=== PATIENT | male | born 1970 | race Caucasian/White ===

== ENCOUNTER 2022-11-07 12:39 | Outpatient (REF) | payer OTHER, SELFPAY ==
[2022-11-07 20:40] LABS: Abs Immature Grans 0.03 10^3/uL (0.0-0.06); Absolute Basophil Count 0.08 10^3/uL (0.0-0.2); Absolute Eosinophil Count 0.22 10^3/uL (0.0-0.7); Absolute Monocyte Count 0.67 10^3/uL (0.1-0.8); Absolute Neutrophil Count 4.55 10^3/uL (1.2-6.7); Eosinophils % 2.8; HCT 45.9 % (40.0-50.0); HGB 15.8 g/dL (13.5-17.5); Immature Grans % 0.4; Lymphocytes % 30.2; MCH 28.7 pg (27.0-33.0); MCHC 34.4 % (32.0-36.0); MCV 83 fL (80-95); Monocytes % 8.4; Neutrophils % 57.2; Platelet Count 254 10^3/uL (130-400); RBC 5.51 10^6/uL (4.36-5.78); RDW 13.5 % (11.8-14.1); RDW-SD 41.3 fL; WBC 7.95 10^3/uL (4.4-10.8)
[2022-11-07 20:50] LABS: Anion Gap 8.5 mmol/L (3-11); BUN 11 mg/dL (7-18); CO2 26.5 mmol/L (21.0-32.0); CREATININE 0.8 mg/dL (0.70-1.30); Calcium 9.7 mg/dL (8.5-10.1); Chloride 102 mmol/L (98-107); Estimated GFR 107.15 (mL/min/1.73m2); Glucose 100 mg/dL (74-106); Potassium 4.2 mmol/L (3.5-5.1); Sodium 137 mmol/L (136-145)
== END 2022-11-07 12:40 | disposition home or self-care (01) ==
LOC: LBN 12:39
PROVIDERS: Visit Provider Nurse Practitioner Family
DX: B35.3 Tinea pedis; L03.031 Cellulitis of right toe; B35.8 Other dermatophytoses
CPT/HCPCS: 80048; 85025

== ENCOUNTER 2022-12-05 15:56 | Outpatient (REF) | payer OTHER, SELFPAY | END 2022-12-05 15:57 | disposition home or self-care (01) | LOC: LBN 15:56 | PROVIDERS: PCP Nurse Practitioner Family; Visit Provider Podiatrist | DX: R21 Rash and other nonspecific skin eruption (principal) | CPT/HCPCS: 87077; 87070; 87075; 87186; 87205 ==

== ENCOUNTER 2022-12-15 07:29 | Day surgery (SDC) | payer OTHER, SELFPAY ==
--- NOTE | 2022-12-14 19:33 | W.ANESPRE ---
General Info Date of Service Date Performed: 12/15/22 Height: 5 ft 5 in Weight: 80.739 kg Body Mass Index (BMI): 29.6 Surgical Procedure: Operation Date: 12/15/22 10:25 Proposed Procedure Side Surgeon p Shoulder Possible Rotator Cuff Arthroscopic w/Extensive Debridement, Biceps Tenodesis, Subacromial Decompression, Distal Clavicle Excision Right Milind Martínez MD Meds Allergies and Home Medications Allergies Allergy/AdvReac Type Severity Reaction Status Date / Time No Known Allergies Allergy Unverified 12/15/22 08:09 Home Medication Medication Instructions Recorded econazole 1 % topical cream 1 applic topical BID #30 grams 11/07/22 gentamicin 0.1 % topical cream 1 applic topical TID #30 grams 11/07/22 sulfamethoxazole 800 1 tab PO BID #14 tabs 12/11/22 mg-trimethoprim 160 mg tablet (Bactrim DS) aspirin 81 mg tablet,delayed 81 mg PO DAILY prevent blood clot 12/15/22 release 7 days #7 tabs naproxen 250 mg tablet 250 - 500 mg (1 - 2 x 250 mg) PO 12/15/22 BID PRN #40 tabs oxycodone 5 mg tablet 5 - 10 mg (1 - 2 x 5 mg) PO Q4H 12/15/22 PRN moderate to severe pain #18 tabs Current Visit Medications: Current Medications Generic Name Dose Route Start Last Admin Trade Name Freq PRN Reason Stop Dose Admin Ringer's Solution 1,000 mls @ 30 mls/hr 12/15/22 06:00 IV 01/13/23 23:59 INFUSION [place] Cefazolin Sodium/Dextrose 2 gm in 50 mls @ 100 mls/hr 12/15/22 06:00 Ancef Duplex IVPB 12/15/22 16:00 PREOP [place] IV Miscellaneous Supplies 1 each 12/15/22 06:00 Iv Access IV 01/13/23 23:59 DIRECTED [place] Sodium Chloride 0 ml 12/15/22 06:00 Normal Saline Flush 10 Ml Syr IV 01/13/23 23:59 PRN PRN Sodium Chloride 0 ml 12/15/22 06:00 Normal Saline 10 Ml Vial IJ 01/13/23 23:59 DIRECTED PRN Sterile Water 0 ml 12/15/22 06:00 Water,Injection,Sterile 10 Ml Vial IJ 01/13/23 23:59 DIRECTED PRN PFSH Active Problems Active Problems: Problem Status Onset Code Onychomycosis B35.1 Dermatitis L30.9 Tinea pedis B35.3 SLAP lesion of right shoulder S43.431A Arthritis of right acromioclavicular joint M19.011 Tendinopathy of right biceps tendon M67.921 Medical History Medical History (Updated 12/15/22 @ 08:11 by Terri Boo) Hx of dislocation of elbow pt. reports being put out for it Surgical History Surgical History (Updated 12/15/22 @ 08:11 by Terri Boo) Hx of colonoscopy Tobacco Smoking/Tobacco Use Status: Never Substance Use Substance use: Daily Substance use type: marijuana Vital Signs and Lab Results Vital Signs Most Recent Vital Signs in EMR: Temp Pulse Resp BP Pulse Ox 36.3 C L 61 16 103/65 97 12/15/22 08:16 12/15/22 08:16 12/15/22 08:16 12/15/22 08:16 12/15/22 08:16 Lab Results Blood Type / Crossmatch: No Data to Display Complete Blood Count: No Data to Display Complete Metabolic Panel: No Data to Display Liver Function Panel: No Data to Display Coagulation Panel: No Data to Display Cardiac Panel: No Data to Display Arterial Blood Gas: No Data to Display Venous Blood Gas: No Data to Display Pancreas Panel: No Data to Display Thyroid Panel: No Data to Display Infectious Disease: No Data to Display Blood Cultures: No Data to Display Toxicology Panel: No Data to Display Anesthesia Assessment and Plan Anesthesia History Personal History: No History of Anesthesia Complications Family History: No Family History of Anesthesia Complications Exercise Tolerance Exercise Tolerance: Metabolic Equivalents>4 Pertinent Negatives Pertinent Negatives: No Major Cardiovascular Symptoms or Complaints, No Major Pulmonary Symptoms or Complaints and No History of CVA/TIA Cardiac & Pulmonary Exam Cardiac Exam: Normal S1/S2 Heart Sounds Pulmonary Exam: Clear Bilateral Breath Sounds Implantable Cardiac Device Does patient have a Pacemaker or an ICD?: No Airway Exam Known Difficult Airway: No Mallampati Class: 2 Mouth Opening: Normal (> 3cm) Thyromental Distance: Less than 3 cm Neck Range of Motion: Full ROM Neck Circumference: Normal Teeth Condition: Edentulous ASA Classification ASA Score: ASA 2 Emergency Case?: No NPO Status NPO Status: NPO Clears >2 hours, Solids >8 hours Anesthesia Plan Resuscitation Status: Full Code Anesthesia Technique: General Anesthesia Airway Planned: Endotracheal Tube Pain Management: Surgeon and patient request nerve block Monitors Used: Standard Monitors Preoperative Comments:: 52 yo male for shoulder scope. Sig PMHx: daily cannabis. Denies major. Does have a ? toe/foot infection that is chronic for which he is on Bactrim - Korsh aware
[2022-12-15] VITALS (9 sets, daily range): BP systolic 92–123; BP diastolic 58–83; PULSE 50–68; RESP 16–22; TEMP 36.2–36.5; O2SAT 97–100; BMI 29.6
--- NOTE | 2022-12-15 07:18 | W.PM.DSUDISC ---
Date of service: 12/15/22 Time of Service: 13:00 Discharge Plan Disposition Patient Disposition: Home Condition: Stable Discharge Details Attending Provider: Milind Martínez Primary Care Provider: Landon Tobias Home Meds and New Rx's Prescriptions: New aspirin 81 mg tablet,delayed release (DR/EC) 81 mg PO DAILY 7 Days Qty: 7 0RF naproxen 250 mg tablet 250 - 500 mg PO BID PRNQty: 40 0RF Rx Instructions: take with a meal oxycodone 5 mg tablet 5 - 10 mg PO Q4H MDD 30 mg PRN (Reason: moderate to severe pain) Qty: 18 0RF Continued econazole 1 % cream 1 applic topical BID Qty: 30 1RF gentamicin 0.1 % cream 1 applic topical TID Qty: 30 1RF sulfamethoxazole-trimethoprim [Bactrim DS] 800-160 mg tablet 1 tab PO BID Qty: 14 0RF Discontinued ibuprofen 200 mg tablet 200 mg PO Q6H PRN Discharge Instructions Additional Instructions: Surgery: Right shoulder arthroscopy with biceps tenodesis, extensive debridement, distal clavicle excision, and subacromial decompression. Activity: You should gradually increase range of motion motion and use of your shoulder. You may use your shoulder for all regular activities while protecting the biceps repair. Avoid any weighted elbow flexion or resisted supination for 6-8 weeks. No heavy lifting, reaching overhead, or lifting away from body for approximately 2-3 months. You may use the sling whenever you are out of the house for a few weeks. At home it is best to remove the sling and rest the arm on a pillow at your side or support the operative side with your other hand. A physical therapy prescription will be sent electronically to start in about 3 weeks Prescriptions: Aspirin 81 mg take 1 daily to prevent a blood clot for 7 days Naproxen 250 mg take 1-2 every 12 hours with a meal as needed for moderate pain Oxycodone 5 mg take 1-2 every 4-6 hours as needed for severe pain You may use [id number] Tylenol (acetaminophen) as needed for mild pain. These pain medications may be taken all at once or in different combinations as needed. Also, recommend Colace (docusate) as a stool softener as surgery and pain medicine cause constipation. You may try [id number] diphenhydramine (Benadryl) 25-50 mg nightly as a sleep aid Dressings: Remove shoulder bandage after 3 days. Leave the sticky Steri-Strips in place until they fall off or remove them after you shower. Cover the incisions with Band-Aids or leave them open to air. You may shower after 5 days. Follow-up: 10-[address] Martínez You may take off the leg compression stockings this evening at home. You may also leave them on a few days longer if you have a history of leg swelling or edema. Let us know right away if you develop any redness, drainage, fevers, chest pain, or trouble breathing. Do not drink alcohol or drive for at least 24 hours after anesthesia. Please call the office during business hours with any questions or concerns. Discharge Orders Discharge Orders: Discharge Order (Routine); Ordered 12/15/22 Ordered By: Milind Martínez DS: Diagnosis Discharge Diagnosis (1) SLAP lesion of right shoulder: Status: Acute (2) Arthritis of right acromioclavicular joint: Status: Acute (3) Tendinopathy of right biceps tendon: Status: Acute
--- NOTE | 2022-12-15 07:22 | ROE_ITS ---
Date of service: 12/15/22 Time of Service: 10:00 Operative Note Operative Note DATE OF PROCEDURE: 12/15/22 PRE-OP DIAGNOSIS: Right: 1. SLAP tear 2. Biceps tendinopathy 3. Bursitis 4. AC Joint arthritis POST-OP DIAGNOSIS: same PROCEDURE: Right: 1. Arthroscopic biceps tenodesis, CPT# 70953. This involved arthroscopically suturing and reattaching the long head of the biceps tendon to the proximal humerus at the superior margin of the bicipital groove with a screw at the correct tension. 2. Extensive debridement, CPT# 43683. This involved using arthroscopic hand instruments, power instruments, and radiofrequency instruments to release the long head of the biceps tendon and debride areas of anterior and posterior labral fraying, rotator interval synovitis working within the glenohumeral joint and debride mild bursal suprspinatus tearing 3. Subacromial decompression with partial acromioplasty, CPT# 09564. This involved using arthroscopic power instruments and a radiofrequency wand to complete a bursectomy and smooth the undersurface of the acromion. 4. Arthroscopic distal clavicle excision, CPT# 78482. This involved arthroscopically exposing the underside of the acromioclavicular joint, smoothing out bone spurs, and removing approximately 5 mm of the distal clavicle and acromion so there was no engaging bone left. The historian research assistant was medically required in order to help assist in techniques above, which require positioning the arm, holding the arthroscope, and manipulating multiple instruments and sutures at the same time. This cannot be done without the help of an experienced historian research assistant. SURGEON: Milind Martínez AIR CONDITIONING ENGINEER: Rizwana Velasquez ANESTHESIA TYPE: General LMA/ETT and Primary Nerve Block Refer to Anesthesia Record ESTIMATED BLOOD LOSS: 10 PATHOLOGY: none sent COMPLICATIONS: None Patient was transported to: PACU Patient's condition: stable Implants: Arthrex: 4.75mm SwiveLocks x 1 Indications: The patient was diagnosed with the above conditions and appropriately indicated for surgical intervention. Please see complete medical record for details. Findings: Exam under anesthesia: Full range of motion, no instability Glenohumeral joint: High-grade partial intra-articular biceps tendon split tearing, anterior and posterior labral fraying, intact subscapularis, intact articular supraspinatus infraspinatus, minimal glenohumeral chondromalacia Subacromial space: Moderate bursitis, large engaging distal clavicle at acromion joint including inferior impingement on the medial aspect of the rotator cuff. Mild central supraspinatus fraying and partial tearing, minimal thickness Procedure Description: In the operating room, general anesthesia was induced. Bilateral shoulders were examined. The patient was positioned in the beachchair position. All bony prominences were well-padded. Preoperative antibiotics were administered. The shoulder was prepped and draped in the usual sterile fashion. The correct patient, procedure, and side of the procedure were all verified prior to incision. Starting through the posterior portal a standard complete diagnostic arthroscopy was performed of the glenohumeral joint including inspection of the long head of the biceps, anterior and superior labrum, subscapularis tendon, supraspinatus and infraspinatus tendons, and axillary recess. The glenoid and humeral head cartilage as well as the posterior labrum were inspected from an anterior viewing portal. Significant findings and interventions noted above. An all-arthroscopic suprapectoral biceps tenodesis was performed through an anterior portal using a Loop N Tack method with a SutureTape FiberLink cinched around and through the tendon. Care was taken to ensure sutures were secured around a structurally sound part of the tendon closer to the superior aspect of the bicipital groove with extra pass made around and through the tendon for added security. The biceps was tenotomized from the labrum and fixated with a suture anchor at the superior margin of the bicipital groove. The knotless repair stitch was then directed around the tendon, back through the anchor eyelet mechanism, and the knotless mechanism used to secure the tendon additionally to the suture anchor and bone. It demonstrated excellent fixation strength. Starting through the posterior portal, the arthroscope was directed into the subacromial space. A lateral 50 yard line lateral portal was created. A combination of power instruments and a radiofrequency ablator were used to debride bursitis anteriorly, posteriorly, and laterally as well as expose and smooth bone spurring on the undersurface of the acromion. The coracoacromial ligament was partially released. The bursectomy was completed viewing laterally and working from posteriorly and the rotator cuff was thoroughly inspected with findings noted above. The anterior portal was redirected towards the undersurface of the AC joint. A shaver and electrocautery device were used to clear soft tissue from the undersurface of the AC joint. The distalmost 5 mm of the distal clavicle and medial margin of the acromion were then removed and smoothed. Care was taken to ensure that proper amount of bone was removed and there was no engaging bone left behind especially superiorly. The minimal and small area of bursal supraspinatus tearing did not probe thick or demonstrate any surrounding thinning so no repair was indicated. The shoulder was drained of arthroscopic fluid. All portal sites were copiously irrigated. These incisions were closed using 3-0 Monocryl in a buried fashion and then covered with Mastisol, Steri-Strips, Xeroform, dry gauze, and ABDs. The dressings were covered and secured with Medipore tape. The operative extremity was placed into a sling for immobilization. The patient awoke from anesthesia without complication and was transferred to the recovery room in a stable condition.
[2022-12-15] MEDS: Lactated Ringers 1,000 ML 30 ML IV (08:40)
--- NOTE | 2022-12-15 09:30 | W.ANESNERVE ---
Nerve Block Single Injection Procedure Date and Time Date Performed: 12/15/22 Procedure Start: 09:13 Location Where Procedure Performed Procedure Location: Day Surgery Unit Reason Performed: Postoperative Analgesia Requesting Provider: Milind Martínez Timeout Performed Timeout Performed: Yes Monitoring Used ECG, Blood Pressure and SpO2 Sterility Sterility: Hand Hygiene, Surgical Cap, Surgical Mask and Chlorhexidine Sedation Given During Procedure Sedation Given (Indicate Dose Given): Versed IV Dose:: 2 mg Patient Mental Status Patient Mental Status: Sedate with meaningful communication Nerve Block 1st Nerve Block: Laterality: Right Block Type: Interscalene Ultrasound Image Saved?: Yes Needle / Catheter Used: 100mm SonoPlex II Local Anesthetic Bolus (Indicate Dose Given): Lidocaine used for local infiltration of skin, Injected in 3-5ml increments after negative blood aspiration, Bupivacaine 0.5% Dose:: 7.5 ml and Exparel Dose:: 7.5 ml Additives (Indicate Dose Given): Normal Saline Ultrasound: Sterile probe cover and gel used Nerve Stimulator: Supplement to Ultrasound use and No twitch or parasthesia noted < 0.5 mA Paresthesia: Right Paresthesia Duration: Transient Procedure Tolerated: No Complications and Patient tolerated well Procedure Outcome: Successful Performed By: Ramsey Roberts 2nd Nerve Block: Laterality: Right Block Type: Superficial Cervical Plexus Ultrasound Image Saved?: Yes Needle / Catheter Used: 100mm SonoPlex II Local Anesthetic Bolus (Indicate Dose Given): Lidocaine used for local infiltration of skin, Injected in 3-5ml increments after negative blood aspiration, Bupivacaine 0.5% Dose:: 2.5 and Exparel Dose:: 2.5 ml Additives (Indicate Dose Given): Normal Saline Ultrasound: Sterile probe cover and gel used Nerve Stimulator: Supplement to Ultrasound use and No twitch or parasthesia noted < 0.5 mA Paresthesia: None Procedure Tolerated: No Complications and Patient tolerated well Procedure Outcome: Successful Performed By: Ramsey Roberts
[2022-12-15] MEDS: ceFAZolin 2 GM/50 ML BAG IVPB (10:31)
[2022-12-15] MEDS: EPINEPHrine 10 MG/10 ML ML (11:48)
--- NOTE | 2022-12-15 12:16 | W.ANESPOSTOP ---
Postoperative Evaluation Date, Time and Location Date Performed: 12/15/22 Time Performed: 12:16 Patient Location: PACU Vital Signs Most Recent Imported Vital Signs: Most Recent Vital Signs Temp Pulse Resp BP Pulse Ox 36.3 C L 58 L 20 100/58 L 100 12/15/22 12:12 12/15/22 12:12 12/15/22 12:12 12/15/22 12:12 12/15/22 12:12 Pain Score Most Recent Pain Score: Most Recent Pain Score Pain Level 0 12/15/22 09:12 Assessment Mental Status: Awake (Alert & Oriented to Patient Baseline) Airway and Respiratory Function: Patent airway with normal (patient baseline) respiratory exam Cardiovascular Function: Hemodynamically Stable Hydration Status: Adequately Hydrated Nausea & Vomiting: No Nausea or Vomiting Pain: Pain is tolerable per patient Peripheral Nerve Block: Regional nerve block not resolved at time of post operative discharge
== END 2022-12-15 14:46 | disposition home or self-care (01) ==
LOC: SUR 07:29
PROVIDERS: PCP Nurse Practitioner Family; Visit Provider Student in an Organized Health Care Education/Training Program
PROC: (CPT 29827; principal; 2022-12-15 10:15)
DX: S43.431A Superior glenoid labrum lesion of right shoulder, initial encounter (principal); M19.011 Primary osteoarthritis, right shoulder; M67.921 Unspecified disorder of synovium and tendon, right upper arm; X58.XXXA Exposure to other specified factors, initial encounter
CPT/HCPCS: 29828; 29823; 29826; 29824; 76942; J0690; J1100; J1885; J2001; J2250; J2371; J2405; J2704

== ENCOUNTER → 2023-05-10 03:49 | Outpatient (CLI) | payer OTHER, SELFPAY ==
--- NOTE | 2023-05-10 08:15 | DI.RAD_ITS ---
Exam(s) XR SHOULDER RT COMPLETE 2+V EXAM: XR SHOULDER RT COMPLETE 2+V CLINICAL HISTORY: R SHOULDER PAIN,arthritis, slap lesion,tendinopathy,s43.431a,m19.011,. TECHNIQUE: 2D digital imaging was performed. Five views. COMPARISON: No exams were available for comparison FINDINGS: BONES: No acute fracture is present. No bony destructive lesion is seen. JOINTS: No dislocation present. The AC joint arm is not widened. There is mild spurring at the AC j oint. Glenohumeral joint space is maintained. Minimal spurring at the glenoid. SOFT TISSUE: Normal. IMPRESSION: Mild degenerative changes. DATA REPOSITORY: RADIATION DOSE DELIVERED:
== END ==
PROVIDERS: PCP Nurse Practitioner Family; Visit Provider Student in an Organized Health Care Education/Training Program
DX: M25.511 Pain in right shoulder (principal); M67.811 Other specified disorders of synovium, right shoulder; M67.813 Other specified disorders of tendon, right shoulder; M19.011 Primary osteoarthritis, right shoulder; S43.431A Superior glenoid labrum lesion of right shoulder, initial encounter
CPT/HCPCS: 73030

== ENCOUNTER → 2023-05-24 03:10 | Outpatient (CLI) | payer OTHER, SELFPAY ==
--- NOTE | 2023-05-24 08:15 | DI.MRI_ITS ---
Exam(s) MR UPPER JOINT RT WO EXAM: MR UPPER JOINT RT WO CLINICAL HISTORY: evaluate biceps failure, retraction,tendinopathy rt biceps tendon,m67.921. TECHNIQUE: Multiplanar multisequence MRI was performed. COMPARISON: DOC,MR MR UPPER EXT ANY JOINT RT WO CONTRAST from 12/01/2021 DOC,DX XR SHOULDER 2V OR MORE RT* from 12/07/2021 DOC,DX XR SHOULDER 2V OR MORE LT* from 12/07/2021 CR XR SHOULDER RT COMPLETE 2+V from 05/10/2023 FINDINGS: BONES: There is no fracture or contusion pattern. There is an orthopedic device in the anterior humer al head which may reflect tendon repositioning. JOINTS: There are mild degenerative changes seen at the acromioclavicular joint. There are mild dege nerative changes seen at the glenohumeral joint. There is a small amount of fluid seen in the superi or aspect of the glenohumeral joint. It lies adjacent to the superior labrum. TENDONS: Supraspinatus: There is tendinosis of the supraspinatus tendon without evidence of a tear. Infraspinatus: Unremarkable. Subscapularis: There is tendinosis of the subscapularis tendon without evidence of a tear. [place]: Unremarkable. Biceps and [place]: Portion of the biceps tendon is seen within the bicipital groove. MUSCLES: Unremarkable. GLENOID LABRUM: Unremarkable on this noncontrast examination. SOFT TISSUES: Unremarkable. LIGAMENTS: Unremarkable. OTHER: Subacromial and subdeltoid bursae are unremarkable. IMPRESSION: 1. Tendinosis of the supraspinatus and subscapularis tendons. 2. Interval postsurgical changes in the humeral head which may represent tendon repositioning. Pleas e correlate with patient's surgical history. 3. No evidence of a rotator cuff tear. 4. Degenerative changes seen at the acromioclavicular and glenohumeral joint. DATA REPOSITORY:
== END ==
PROVIDERS: PCP Nurse Practitioner Family; Visit Provider Student in an Organized Health Care Education/Training Program
DX: M19.011 Primary osteoarthritis, right shoulder (principal); M67.811 Other specified disorders of synovium, right shoulder; M25.411 Effusion, right shoulder; M75.81 Other shoulder lesions, right shoulder; Z98.890 Other specified postprocedural states; M67.813 Other specified disorders of tendon, right shoulder
CPT/HCPCS: 73221

== ENCOUNTER 2024-02-02 10:45 | Outpatient (REF) | payer OTHER, SELFPAY ==
[2024-02-02 16:32] LABS: ALT 36 U/L (16-63); AST 20 U/L (15-37); Alkaline Phosphatase 103 U/L (46-116); Anion Gap 10.5 mmol/L (3-11); BUN 13 mg/dL (7-18); Bilirubin, Total 0.26 mg/dL (0.2-1.0); CO2 25.5 mmol/L (21.0-32.0); CREATININE 0.8 mg/dL (0.70-1.30); Calcium 9.3 mg/dL (8.5-10.1); Calculated LDL 115 mg/dL (<100); Chloride 104 mmol/L (98-107); Cholesterol 188 mg/dL (<200); Estimated GFR 106.48 (mL/min/1.73m2); Glucose 102 mg/dL (74-106); HDL Cholesterol 44 mg/dL (40-60); Potassium 4.5 mmol/L (3.5-5.1); Sodium 140 mmol/L (136-145); Total Protein 7.1 g/dL (6.4-8.2); Triglyceride 146 mg/dL (<150)
[2024-02-04 10:09] LABS: HIV-1/2 Ag & Ab Screen Negative (Negative)
[2024-02-04 23:18] LABS: Hepatitis C Ab w Rflx HCV PCR Negative (Negative)
== END 2024-02-02 10:46 | disposition home or self-care (01) ==
LOC: LBN 10:45
PROVIDERS: PCP Nurse Practitioner Family; Visit Provider Nurse Practitioner Family
DX: Z13.220 Encounter for screening for lipoid disorders (principal); Z11.4 Encounter for screening for human immunodeficiency virus [HIV]; Z11.59 Encounter for screening for other viral diseases
CPT/HCPCS: 80053; 80061; 86803; 87389

== ENCOUNTER 2024-03-05 15:57 | Outpatient (CLI) | payer OTHER, SELFPAY ==
--- NOTE | 2024-03-05 09:15 | DI.RAD_ITS ---
Exam(s) XR ELBOW LT COMPLETE EXAM: XR ELBOW LT COMPLETE CLINICAL HISTORY: LEFT ELBOW PAIN. TECHNIQUE: 2D digital imaging was performed. Three views. COMPARISON: No exams were available for comparison FINDINGS: BONES: No acute fracture is present. No bony destructive lesion is seen. JOINTS: The elbow is normally aligned. No joint effusion is seen. Joint spaces are maintained. No significant degenerative changes. SOFT TISSUE: Normal. IMPRESSION: Unremarkable radiographs of the left elbow. DATA REPOSITORY: RADIATION DOSE DELIVERED:
== END 2024-03-05 15:58 | disposition home or self-care (01) ==
LOC: DIORS 15:57
PROVIDERS: PCP Nurse Practitioner Family; Visit Provider Student in an Organized Health Care Education/Training Program
DX: M77.12 Lateral epicondylitis, left elbow (principal)
CPT/HCPCS: 73080

== ENCOUNTER 2024-04-29 05:59 | Day surgery (SDC) | payer OTHER, SELFPAY ==
[2024-04-29 06:26] VITALS: BP 121/76; PULSE 62; RESP 16; TEMP 36.4; O2SAT 97
[2024-04-29] MEDS: Celecoxib 200 MG CAP 400 MG PO (06:42)
[2024-04-29] MEDS: Acetaminophen 500 MG TAB 1000 MG PO (06:42)
[2024-04-29] MEDS: Lactated Ringers 1,000 ML 80 ML IV (06:52)
--- NOTE | 2024-04-29 07:06 | W.ANESPRE ---
General Info Date of Service Date Performed: 04/29/24 Height: 5 ft 6 in Weight: 83.7 kg Body Mass Index (BMI): 29.7 Surgical Procedure: Operation Date: 04/29/24 07:40 Proposed Procedure Side Surgeon p Wrist ECTR Left Marquis Chino MD Meds Allergies and Home Medications Allergies Allergy/AdvReac Type Severity Reaction Status Date / Time No Known Allergies Allergy Verified 04/29/24 06:36 Home Medication ?Medication ?Instructions ?Recorded albuterol 90 mcg/actuation aerosol mcg inhalation 04/29/24 inhaler hydrocodone 5 mg-acetaminophen 325 1 tab PO Q6H PRN severe pain #4 04/29/24 mg tablet tabs Current Visit Medications: Current Medications Generic Name Dose Route Start Last Admin Trade Name Freq PRN Reason Stop Dose Admin Acetaminophen 1,000 mg 04/29/24 06:00 04/29/24 06:42 Acetaminophen 500 Mg Tab PO 04/29/24 23:59 1,000 mg PREOP [place] Administration Celecoxib 400 mg 04/29/24 06:00 04/29/24 06:42 Celecoxib 200 Mg Cap PO 04/29/24 23:59 400 mg PREOP [place] Administration Ringer's Solution 1,000 mls @ 80 mls/hr 04/29/24 06:00 04/29/24 06:52 IV 04/29/24 23:59 80 mls/hr INFUSION [place] Administration Cefazolin Sodium/Dextrose 2 gm in 50 mls @ 100 mls/hr 04/29/24 06:00 Ancef Duplex IVPB 04/29/24 23:59 PREOP [place] IV Miscellaneous Supplies 1 each 04/29/24 06:00 Iv Access IV 04/29/24 23:59 DIRECTED [place] Sodium Chloride 0 ml 04/29/24 06:00 Normal Saline Flush 10 Ml Syr IV 04/29/24 23:59 PRN PRN Sodium Chloride 0 ml 04/29/24 06:00 Normal Saline 10 Ml Vial IJ 04/29/24 23:59 DIRECTED PRN Sterile Water 0 ml 04/29/24 06:00 Water,Injection,Sterile 10 Ml Vial IJ 04/29/24 23:59 DIRECTED PRN PFSH Active Problems Active Problems: Problem Status Onset Code Carpal tunnel syndrome of left wrist Acute G56.02 Lateral epicondylitis, left elbow Acute M77.12 Depression Chronic F32.A Tinea pedis Chronic B35.3 Mild intermittent asthma Acute J45.20 Complete edentulism Acute K08.109 Psoriasis Chronic L40.9 Dermatitis Acute L30.9 SLAP lesion of right shoulder Acute S43.431A Arthritis of right acromioclavicular joint Acute M19.011 Tendinopathy of right biceps tendon Acute M67.921 Medical History Medical History Alcohol abuse Onychomycosis Hx of dislocation of elbow pt. reports being put out for it Surgical History Surgical History Hx of colonoscopy Tobacco Smoking/Tobacco Use Status: Former Tobacco Use Smokeless tobacco user: chewing tobacco Passive smoking exposure: Yes Second hand exposure: Yes Alcohol Alcohol Intake: former Year quit: 2018 Substance Use Substance use: Daily Substance use type: marijuana Details: smoked cannabis 04/28/24 Vital Signs and Lab Results Vital Signs Most Recent Vital Signs in EMR: Most Recent Vital Signs Temp Pulse Resp BP Pulse Ox 36.4 C L 62 16 121/76 97 04/29/24 06:26 04/29/24 06:26 04/29/24 06:26 04/29/24 06:26 04/29/24 06:26 Lab Results Blood Type / Crossmatch: No Data to Display Complete Blood Count: No Data to Display Complete Metabolic Panel: No Data to Display Liver Function Panel: No Data to Display Coagulation Panel: No Data to Display Cardiac Panel: No Data to Display Arterial Blood Gas: No Data to Display Venous Blood Gas: No Data to Display Pancreas Panel: No Data to Display Thyroid Panel: No Data to Display Infectious Disease: No Data to Display Blood Cultures: No Data to Display Toxicology Panel: No Data to Display Anesthesia Assessment and Plan Anesthesia History Personal History: No History of Anesthesia Complications Family History: No Family History of Anesthesia Complications Exercise Tolerance Exercise Tolerance: Metabolic Equivalents>4 Pertinent Negatives Pertinent Negatives: No Symptoms of GERD Cardiac & Pulmonary Exam Cardiac Exam: Normal S1/S2 Heart Sounds Pulmonary Exam: Clear Bilateral Breath Sounds Implantable Cardiac Device Does patient have a Pacemaker or an ICD?: No Airway Exam Known Difficult Airway: No Mallampati Class: 2 Mouth Opening: Normal (> 3cm) Thyromental Distance: Less than 3 cm Neck Range of Motion: Full ROM Neck Circumference: Normal Teeth Condition: Edentulous ASA Classification ASA Score: ASA 2 Emergency Case?: No NPO Status NPO Status: NPO Clears >2 hours, Solids >8 hours Anesthesia Plan Resuscitation Status: Full Code Anesthesia Technique: General Anesthesia Airway Planned: Natural Airway Monitors Used: Standard Monitors
--- NOTE | 2024-04-29 07:08 | W.PM.DSUDISC ---
Date of service: 04/29/24 Discharge Plan Disposition Patient Disposition: Home Condition: Good Discharge Details Reason For Visit: left carpal tunnel syndrome Attending Provider: Marquis Chino Primary Care Provider: Landon Tobias Home Meds and New Rx's Prescriptions: New hydrocodone-acetaminophen 5-325 mg tablet 1 tab PO Q6H PRN (Reason: severe pain) Qty: 4 0RF Rx Instructions: Take one tablet up to every 6 hours as needed for severe postoperative pain Continued albuterol 90 mcg/actuation aerosol inhalation Patient Comments: 04/29/24 pt took 2 puffs Albuterol Discharge Instructions Stand Alone Forms: Matti [place] Tunnel Release Referrals: Marquis Chino MD [ [facility] STAFF PHYSICIAN] - Activity:: Elevate Remove Dressings/Wound Care:: 48 hours Shower/Bathe:: 48 hours Diet:: As Tolerated
[2024-04-29 07:10] VITALS: BMI 29.7
--- NOTE | 2024-04-29 07:18 | HPE_ITS ---
Assessment and Plan Assessment and plan (1) Carpal tunnel syndrome of left wrist: Status: Acute Assessment and plan: Ramsey is a 53-year-old male who has had ongoing pain and numbness and ting about the left arm. His lateral epicondylitis has improved but he continues to have numbness and tingling about the left hand which is failed other nonoperative treatments. After a review of clinical history, exam findings, and nerve conduction testing, carpal tunnel syndrome is the most reasonable diagnosis. I offered a carpal tunnel release. I discussed the technical details of carpal tunnel release and that I perform an endoscopic release, but would make a larger, open, incision if necessary for visualization. I discussed the risks of the procedure to include, but not limited to, bleeding, infection, palmar pain, stiffness, damage to nerves, damage to vessels, damage to tendons, weakness, recurrence, and incomplete release. Given these risks, Ramsey desires to proceed. History of Present Illness History of Present Illness Chief Complaint: Left Carpal Tunnel Syndrome Narrative: Ramsey is a 53-year-old male who has carpal tunnel syndrome at the left side. Please see previous office note for complete detailed history. He has failed nonoperative options and is here today for carpal tunnel release. No new medical issues. No recent illness. Review of Systems All systems reviewed & are unremarkable except as noted in HPI and below PFSH All Active Problems Carpal tunnel syndrome of left wrist (Acute) Lateral epicondylitis, left elbow (Acute) Depression (Chronic) Tinea pedis (Chronic) Mild intermittent asthma (Acute) Complete edentulism (Acute) Psoriasis (Chronic) Dermatitis (Acute) SLAP lesion of right shoulder (Acute) Arthritis of right acromioclavicular joint (Acute) Tendinopathy of right biceps tendon (Acute) Medical History Alcohol abuse Onychomycosis Hx of dislocation of elbow pt. reports being put out for it Surgical History Hx of colonoscopy Social History Smoking/Tobacco Use Status: Former Tobacco Use tobacco type: cigarettes and smokeless tobacco Quit Date: 02/12/13 Tobacco: How many years used: 20 Smokeless tobacco user: chewing tobacco Quit status: has quit before Second Hand Exposure: Yes Smoking risk assessment performed?: Yes Alcohol Intake: former Year quit: 2019 Drug use: Daily Substance use type: marijuana Details: smoked cannabis 04/28/24 Adopted: No Caregiver/Support person: No Foster care: No Household members: other Details: mother Housing: house Number of Children: 2 number of grandchildren: 3 Communication Needs: Hard of Hearing Education Level: high school Details: 10th grade Do you need help understanding health information?: Never current occupation: [employer] Pets and animals: Yes Pets and animals: dog(s) Sexually active: No Do you think of yourself as: straight/heterosexual Current gender identity: male What is your relationship status?: How often do you talk on the phone with friends or family?: once per week How often do you get together with friends or relatives?: once per week How often do you attend protestant or mandaen services?: decline to answer Do you belong to any clubs or organized social groups?: no Panel score (0-1 are the most socially isolated patients): 0 What type of physical activity do you participate in: other Details: hiking, walking, hunting Duration: > 90 minutes/day Anita/Muslim: none Special anita needs: No Seatbelt use: always Helmet use: No Drive intox or ride w/intox milk pickup driver: No Working smoke detector in home: Yes Carbon monox detector in home: Yes Firearms in home: Yes Firearms unloaded and locked: Yes Do you feel safe at home: Yes Do you feel safe in your relationship?: Yes Victim of physical abuse: No Victim of emotional abuse: No Victim of sexual abuse: No Would you like helpful sources: No Meds Allergies and Home Medications Allergies Allergy/AdvReac Type Severity Reaction Status Date / Time No Known Allergies Allergy Verified 04/29/24 06:36 Home Medications ?Medication ?Instructions ?Recorded ?Confirmed ?Type albuterol 90 mcg/actuation aerosol mcg inhalation 04/29/24 History inhaler hydrocodone 5 mg-acetaminophen 325 1 tab PO Q6H PRN severe pain #4 04/29/24 Rx mg tablet tabs Exam Const General: cooperative, healthy appearing, comfortable and no acute distress Resp Effort & Inspection: normal respiratory effort Auscultation: clear to auscultation bilaterally Cardio Rate: regular rate Rhythm: regular rhythm Results Last Vital Signs Temp 36.4 C L 04/29/24 06:26 Pulse 62 04/29/24 06:26 Resp 16 04/29/24 06:26 BP 121/76 04/29/24 06:26 Pulse Ox 97 04/29/24 06:26
[2024-04-29] MEDS: ceFAZolin 2 GM/50 ML BAG IVPB (07:22)
[2024-04-29] MEDS: Lidocaine 1% Multi-Dose W/EPI 1/100,000 50 ML VIAL (07:26)
[2024-04-29 07:45] VITALS: BP 102/64; PULSE 75; RESP 16; TEMP 36.4; O2SAT 96
[2024-04-29 08:20] VITALS: BP 103/74; PULSE 57; RESP 16; TEMP 36.3; O2SAT 97
--- NOTE | 2024-04-29 08:34 | W.ANESPOSTOP ---
Postoperative Evaluation Date, Time and Location Date Performed: 04/29/24 Time Performed: 08:34 Patient Location: Day Surgery Unit Vital Signs Most Recent Imported Vital Signs: Most Recent Vital Signs Temp Pulse Resp BP Pulse Ox 36.3 C L 57 L 16 103/74 97 04/29/24 08:20 04/29/24 08:20 04/29/24 08:20 04/29/24 08:20 04/29/24 08:20 Pain Score Most Recent Pain Score: Most Recent Pain Score Pain Level 0 04/29/24 08:20 Assessment Mental Status: Awake (Alert & Oriented to Patient Baseline) Airway and Respiratory Function: Patent airway with normal (patient baseline) respiratory exam Cardiovascular Function: Hemodynamically Stable Hydration Status: Adequately Hydrated Nausea & Vomiting: No Nausea or Vomiting Pain: Pt. Denies Any Pain Peripheral Nerve Block: Patient did not receive a nerve block
--- NOTE | 2024-04-29 09:05 | ROE_ITS ---
Operative Note Operative Note PRE-OP DIAGNOSIS: Left Carpal Tunnel Syndrome POST-OP DIAGNOSIS: same PROCEDURE: Left Endoscopic Carpal Tunnel Release SURGEON: Marquis Chino ANESTHESIA TYPE: General:No Airway Refer to Anesthesia Record ESTIMATED BLOOD LOSS: 0 PATHOLOGY: none sent TOURNIQUET TIME: 6 COMPLICATIONS: None Patient was transported to: same day Patient's condition: stable Indications: I have seen Ramsey in clinic for symptoms of carpal tunnel syndrome. The numbness, tingling, and pain limited function. Clinical exam findings confirmed the diagnosis of carpal tunnel syndrome. Nonoperative measures such as bracing, time, activity modifications had been tried but disability and pain persisted. I discussed carpal tunnel release with the patient. I reviewed the risks of the procedure to include, but not limited to, bleeding, infection, pain, stiffness, incomplete release, damage to nerves or vessels, persistent numbness, recurrence. Despite these risks, the patient elected to proceed. Findings: There was tightened carpal tunnel. This was dilated and released successfully with the endoscopic with increased space within the tunnel. The antebrachial fascia was released proximally freeing the median nerve at the wrist. Procedure Description: Ramsey was greeted in the preoperative holding area where the correct side was identified and marked. The consent was reviewed with the patient and signed. The history and physical was updated. All questions were answered. He was taken back to the operating room. The patient was placed into the supine position on the operating room table with the left arm on an arm board. A nonsterile tourniquet was placed high onto the arm. All bony prominences were well padded. Prophylactic antibiotics in the form of Cefazolin were administered. The left arm was then prepped with Chloraprep and draped in a standard fashion with stockinette and extremity drape. A timeout to confirm correct identity, side and site, procedure, allergies, anesthesia, and medical concerns was performed. The surgical site was marked in the volar wrist creases in line with the radial border of the fourth ray. This area was anesthetized with approximately 6cc of 1% Lidocaine. The limb was then exsanguinated with an Esmarch. The skin was in cised with a 15 blade, approximately 1cm. The skin only was cut and the deeper tissue was dissected bluntly with a tenotomy scissor, avoiding passing nerve and venous structures. The fascia was penetrated and opened bluntly. A two-prong skin hook was placed under this proximal fascial edge. A series of hamate finders were used to identify and dilate the carpal tunnel. Synovial elevator was used to free synovial attachments to the underside of the transverse carpal ligament. My thumb was kept in the palm to khadijah the distal extent of the carpal tunnel and correctly position the hand. The Microaire endoscope was inserted without difficulty and without resistance. Excellent visualization showed horizontally running fibers of the transverse carpal ligament (TCL). The distal extent of the TCL was visualized and the end of the scope palpated with the thumb. The blade was elevated and withdrawn from distal to proximal. The TCL was split into two flaps. The endoscope was reinserted to confirm complete release and any remnant ligament was incised. The scope was withdrawn and the proximal aspect of the carpal tunnel was grossly inspected and appeared release with the median nerve visible. The antebrachial fascia at the level of the wrist was then freed from the overlying skin and then the underlying median nerve with blunt dissection. This was transected longitudinally for about 3cm proximal to the wrist incision. The wound was then irrigated with easy flow of irrigant distally and proximally. The incision was closed with a single 4-0 Nylon suture. The wound was dressed with Xeroform, Gauze, Kerlix and Leonardo. The tourniquet was deflated with the initial dressing and held with some pressure. Blood flow returned easily to all digits with capillary refill less than 2 seconds. The patient tolerated the procedure well and was returned to the Same Day Surgery area in a stable condition suffering no known complication. Date of Procedure: 04/29/24
== END 2024-04-29 08:35 | disposition home or self-care (01) ==
PROVIDERS: PCP Nurse Practitioner Family; Visit Provider Student in an Organized Health Care Education/Training Program
PROC: 01N54ZZ Release Median Nerve, Percutaneous Endoscopic Approach (ICD-10-PCS; CPT 29848; principal; 2024-04-29 07:30)
DX: G56.02 Carpal tunnel syndrome, left upper limb (principal)
CPT/HCPCS: 29848; J0690; J2004; J2250; J2405; J2704

== ENCOUNTER 2024-06-08 11:52 | Emergency (ER) | payer OTHER, SELFPAY ==
[2024-06-08 12:05] VITALS: BP 124/85; PULSE 69; RESP 20; TEMP 36.9; O2SAT 98
[2024-06-08 12:34] VITALS: BP 124/85; PULSE 69; RESP 20; TEMP 36.9; O2SAT 98
--- NOTE | 2024-06-08 12:46 | ED.GENADUL_ITS ---
Discharge Plan Disposition Patient Disposition: Home Discharge Details Clinical Impression: Cellulitis of foot, right Primary Care Provider: Landon Tobias ED Provider: Ricardo Guillory Home Meds and New Rx's Prescriptions: New sulfamethoxazole-trimethoprim [Bactrim DS] 800-160 mg tablet 1 tab PO BID 5 Days Qty: 10 0RF Continued tadalafil 10 mg tablet 10 mg PO DAILY PRN (Reason: sexual activity) Qty: 30 0RF Rx Instructions: administer approximately 30min before sexual activity; do not use more than 1 dose per 24hrs albuterol 90 mcg/actuation aerosol 90 mcg inhalation DIRECTED Patient Comments: 04/29/24 pt took 2 puffs Albuterol Discharge Instructions Additional Instructions: You are seen in the emergency department for your painful and swollen foot. Please take these antibiotics as directed. As we discussed if you develop worsening pain decreased range of motion in your foot or fevers please return to the emergency department. Otherwise please follow-up with the podiatry team next week. Discharge Data Discharge Date/Time-TO BE ENTERED AT DEPARTURE: 06/08/24 13:05 HPI General Date/Time Provider Initiated Documentation: 06/08/24 12:34 . HPI Narrative: MDM This is a very well-appearing normothermic and not tachycardic 53-year-old male with right foot swelling tenderness and mild warmth concerning for the possibility of recurrent cellulitis for which he will receive treatment with trimethoprim/sulfamethoxazole given resolution of similar symptoms in the past. No pain out of proportion to suggest necrotizing soft tissue infection. Foot warm well-perfused so I am not concerned for critical limb ischemia so I do not feel that the patient required a CT angiogram of his abdomen with runoffs. No vesicles to suggest zoster. No fluctuance to suggest abscess. Given generalized tenderness I was not suspicious for gout. Furthermore patient has no history of gouty arthritis in the past. 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 No significant pruritus to suggest benefit from treatment for tinea pedis. Patient was having no fevers and his vital signs were not consistent with sepsis so I did not empirically treat with antibiotics nor did I draw blood cultures. Patient and I discussed that he should return to the emergency department if he developed worsening pain any decreased range of motion or could not tolerate his antibiotics as result of nausea or vomiting. He understood his return indications and was discharged with an empiric trial of expectant outpatient management. HPI This is a 53-year-old male with prior history of kidney pedis and dermatitis right emergency department via private vehicle in the setting of right foot pain blisters. 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 He reports that he has had purchased some new shoes in the past several days. He noticed some blisters on the medial side of his right foot. He denies history of diabetes. No history of any recent fevers. Denies routine IV drug use. Patient denies any history of recent itching of his feet. Exam General: Well-appearing in no acute distress speaking in complete sentences. Head: Normocephalic, atraumatic. Eye:[Pupils equal, round reactive to light.] Extraocular eye movements intact. No conjunctival injection. No scleral icterus. Ear, nose, mouth, throat: Grossly normal inspection. Normal voice, handling secretions normally. Neck: Trachea midline. Cardiovascular: Well-perfused distal extremities. Respiratory: Nonlabored respiration. Gastrointestinal: Nondistended abdomen. Musculoskeletal: No edema. Moving all 4 extremities spontaneously. Skin: Patient in the following photos patient has very mild diffuse erythema of his foot primarily concentrated around the dorsal surface healing excoriations and along the lateral surface of the right foot. No fluctuance. Neurologic: Alert and appropriate, no apparent acute deficits. Psychiatric: Mood and manner are appropriate. Grooming and personal hygiene are appropriate. Related Data Home Medications ?Medication ?Instructions ?Recorded ?Confirmed albuterol 90 mcg/actuation aerosol 90 mcg inhalation DIRECTED 04/29/24 06/08/24 inhaler tadalafil 10 mg tablet 10 mg PO DAILY PRN sexual activity 05/21/24 06/08/24 #30 tabs sulfamethoxazole 800 1 tab PO BID 5 days #10 tabs 06/08/24 mg-trimethoprim 160 mg tablet (Bactrim DS) Previous Rx's ?Medication ?Instructions ?Recorded tadalafil 10 mg tablet 10 mg PO DAILY PRN sexual activity 05/21/24 #30 tabs sulfamethoxazole 800 1 tab PO BID 5 days #10 tabs 06/08/24 mg-trimethoprim 160 mg tablet (Bactrim DS) Allergies Allergy/AdvReac Type Severity Reaction Status Date / Time No Known Allergies Allergy Verified 06/08/24 12:09 General Stated Complaint: Cellulitis STEPHENIE: 3 Course Vital Signs Vital signs: Vital Signs Temperature 36.9 C 06/08/24 12:05 Pulse 69 06/08/24 12:05 Respiratory Rate 20 06/08/24 12:05 Blood Pressure 124/85 06/08/24 12:05 Pulse Oximetry 98 06/08/24 12:05 Temperature 36.9 C 06/08/24 12:34 Pulse 69 06/08/24 12:34 Respiratory Rate 20 06/08/24 12:34 Blood Pressure 124/85 06/08/24 12:34 Pulse Oximetry 98 06/08/24 12:34 Oxygen Delivery Method Room Air 06/08/24 12:34 Oxygen Flow Rate 0 06/08/24 12:34 Pain Level 0 06/08/24 12:34 Medical Decision Making Quality:SDOH Health Related Social Needs: 2 No Data to Display PFSH All Active Problems (Updated 06/08/24 @ 12:59 by Ricardo Guillory MD) Cellulitis of foot, right (Acute) Constipation (Acute) Erectile dysfunction (Acute) Lateral epicondylitis, left elbow (Acute) Depression (Chronic) Tinea pedis (Chronic) Mild intermittent asthma (Acute) Complete edentulism (Acute) Psoriasis (Chronic) Dermatitis (Acute) SLAP lesion of right shoulder (Acute) Arthritis of right acromioclavicular joint (Acute) Tendinopathy of right biceps tendon (Acute) Medical History Alcohol abuse Hx of dislocation of elbow pt. reports being put out for it Onychomycosis Surgical History Carpal tunnel syndrome of left wrist S/P ECTR: 04/29/2024 Hx of colonoscopy Social History Smoking/Tobacco Use Status: Former Tobacco Use tobacco type: cigarettes and smokeless tobacco Quit Date: 02/12/13 Tobacco: How many years used: 20 Smokeless tobacco user: chewing tobacco Quit status: has quit before Second Hand Exposure: Yes Smoking risk assessment performed?: Yes Alcohol Intake: former Year quit: 2018 Drug use: Daily Substance use type: marijuana Details: smoked cannabis 04/28/24 Adopted: No Caregiver/Support person: No Foster care: No Household members: other Details: mother Housing: house Number of Children: 2 number of grandchildren: 3 Communication Needs: Hard of Hearing Education Level: high school Details: 10th grade Do you need help understanding health information?: Never current occupation: [employer] Pets and animals: Yes Pets and animals: dog(s) Sexually active: No Do you think of yourself as: straight/heterosexual Current gender identity: male What is your relationship status?: How often do you talk on the phone with friends or family?: once per week How often do you get together with friends or relatives?: once per week How often do you attend jainism or jehovah's witness services?: decline to answer Do you belong to any clubs or organized social groups?: no Panel score (0-1 are the most socially isolated patients): 0 What type of physical activity do you participate in: other Details: hiking, walking, hunting Duration: > 90 minutes/day Anita/Mandaeism: none Special anita needs: No Seatbelt use: always Helmet use: No Drive intox or ride w/intox sprinkler driver: No Working smoke detector in home: Yes Carbon monox detector in home: Yes Firearms in home: Yes Firearms unloaded and locked: Yes Do you feel safe at home: Yes Do you feel safe in your relationship?: Yes Victim of physical abuse: No Victim of emotional abuse: No Victim of sexual abuse: No Would you like helpful sources: No
== END 2024-06-08 13:05 | disposition home or self-care (01) ==
PROVIDERS: Emergency Provider Emergency Medicine; PCP Nurse Practitioner Family
DX: L03.115 Cellulitis of right lower limb (principal)
CPT/HCPCS: 99283 ×2